=== PATIENT | female | born 1955 | race Caucasian/White ===

== ENCOUNTER 2022-12-02 09:53 | Emergency (ER) | payer MEDICARE ==
[~2022-12-02] VITALS: Ht 172.7 cm; Wt 60.4 kg
[2022-12-02 12:20] VITALS: TEMP 97.4
[2022-12-02] MEDS ORDERED: ketorolac trometh inj. 60 MG/2 ML VIAL IM ONE (12:30)
[2022-12-02] MEDS ORDERED: ceFAZolin 1gm IM kit IM ONE (13:30)
[2022-12-02] MEDS ORDERED: morphine 4 MG/ML inj SYRINge IV ONE (13:30)
[2022-12-02] MEDS ORDERED: LIDOcaine 1% 30ml preserv. free vial SQ STA (13:33)
[2022-12-02] MEDS ORDERED: HYDROmorphone 1 mg/ml syringe IM ONE (14:10)
[2022-12-02 14:19] LABS: PROTHROMBIN TIME 10.8 SECONDS (9.0-12.0)
[2022-12-02 14:26] LABS: ALANINE AMINOTRANSFERASE 17 U/L (12-78); ALBUMIN 3.6 G/DL (3.4-5.0); ALKALINE PHOSPHATASE 87 IU/L (46-116); ANION GAP 5 (8-16); ASPARTATE AMINO TRANSFERASE 16 U/L (10-37); BILIRUBIN,TOTAL 0.4 MG/DL (0.1-1.0); BLOOD UREA NITROGEN 9 MG/DL (7-18); BUN/CREATININE RATIO 10.3 (10.0-20.0); CALCIUM 9.4 MG/DL (8.5-10.1); CHLORIDE 105 MMOL/L (99-107); CREATININE 0.87 MG/DL (0.40-0.90); GLUCOSE 104 MG/DL (70-104); POTASSIUM 3.8 MMOL/L (3.5-5.1); SODIUM 139 MMOL/L (135-145); TOTAL CARBON DIOXIDE 28.8 MMOL/L (24-32); TOTAL PROTEIN 7.3 G/DL (6.4-8.2); eCRCL 62 ML/MIN; eGFR 66 ML/MIN
[2022-12-02 14:29] LABS: BASOPHILS # (AUTO) 0.1 X10'3 (0-0.2); BASOPHILS % (AUTO) 0.5 % (0-1); EOSINOPHILS % (AUTO) 0.2 % (0-6); HEMATOCRIT 38.8 % (35.0-45.0); HEMOGLOBIN 12.3 g/dl (12.0-16.0); LYMPHOCYTES # (AUTO) 1.5 X10'3 (1.1-4.8); LYMPHOCYTES % (AUTO) 12.1 % (21-51); MEAN CORPUSCULAR HEMOGLOBIN 24.7 PG (27.0-31.0); MEAN CORPUSCULAR HGB CONC 31.8 g/dL (33.0-36.5); MEAN CORPUSCULAR VOLUME 77.8 FL (78-98); MEAN PLATELET VOLUME 7.5 FL (7.4-10.4); MONOCYTES # (AUTO) 0.8 X10'3 (0-0.9); MONOCYTES % (AUTO) 6.5 % (2-12); NEUTROPHILS # (AUTO) 9.8 X10'3 (1.8-7.7); NEUTROPHILS % (AUTO) 80.7 % (42-75); PLATELET COUNT 258 X10'3 (140-440); RED BLOOD COUNT 4.98 X10'6 (4.20-5.60); WHITE BLOOD COUNT 12.1 X10'3 (4.5-11.0)
[2022-12-02 15:04] VITALS: BP 136/74; PULSE 74; O2SAT 97
[2022-12-02 15:14] VITALS: RESP 18
[2022-12-02] MEDS ORDERED: AMOX-117 PO (16:16)
[2022-12-02] MEDS ORDERED: HYDR-3972 PO (16:17)
== END 2022-12-02 16:37 | disposition home or self-care (01) ==
LOC: ER 09:53
DX: S62.395A Other fracture of fourth metacarpal bone, left hand, initial encounter for closed fracture (principal); S61.217A Laceration without foreign body of left little finger without damage to nail, initial encounter; S61.412A Laceration without foreign body of left hand, initial encounter; W54.0XXA Bitten by dog, initial encounter; Y93.89 Activity, other specified; Y92.89 Other specified places as the place of occurrence of the external cause; Y99.8 Other external cause status
CPT/HCPCS: 12001; 26605; 36415; 73130; 80053; 85025; 85610; 96372; 99284; J0690; J1170; J1885; A6258; A6449

== ENCOUNTER 2024-06-04 15:48 | Emergency (ER) | payer MEDICARE, OTHER ==
[~2024-06-04] VITALS: Ht 172.7 cm; Wt 64.2 kg
[2024-06-04 15:52] VITALS: BP 146/63; PULSE 85; RESP 16; O2SAT 96
[2024-06-04 17:21] VITALS: TEMP 97.6
== END 2024-06-04 17:27 | disposition home or self-care (01) ==
LOC: ER 15:48
DX: M79.644 Pain in right finger(s) (principal); Z88.0 Allergy status to penicillin; Z88.5 Allergy status to narcotic agent; W18.39XA Other fall on same level, initial encounter; Y93.89 Activity, other specified; Y92.89 Other specified places as the place of occurrence of the external cause; Y99.8 Other external cause status
CPT/HCPCS: 73140; 99283